=== PATIENT | female | born 1970 | race American Indian/Alaskan Native ===

== ENCOUNTER 2017-09-16 09:43 | Outpatient (CLI) | payer BC ==
--- NOTE | 2017-09-16 12:01 | Mammography Report ---
Screening mammogram: Routine views demonstrate a partially circumscribed rounded asymmetry in the upper-outer right breast. The overall breast pattern is heterogeneous, symmetric, and otherwise unremarkable. The patient does have history of prior right breast biopsy. CAD used. Impression: Right breast asymmetry. Recommendation: Prior exams are being requested for comparison. Following comparison recommendation will be given. BI-RADS CATEGORY: 0 = Needs additional imaging evaluation ACR BI-RADS MAMMOGRAPHIC CODES: 0 = Needs additional imaging evaluation; 1 = Negative; 2 = Benign; 3 = Probably benign; 4 = Suspicious; 5 = Malignant; 6 = Known biopsy-proven malignancy COMMENT: 1. Dense breast tissue, i.e., adenosis, fibrocystic changes, etc., may obscure an underlying neoplasm. 2. Approximately 10% of cancers are not detected with mammography. 3. A negative mammography report should not delay biopsy if a clinically suspicious mass is present.
== END 2017-09-16 09:44 | disposition home or self-care (01) ==
LOC: MAMMO 09:43
PROVIDERS: ATTEND Internal Medicine
DX: Z12.31 Encounter for screening mammogram for malignant neoplasm of breast (principal)
CPT/HCPCS: 77067; G0202